=== PATIENT | female | born 1985 | race American Indian/Alaskan Native ===

== ENCOUNTER 2021-10-15 16:03 | Emergency (ER) | payer SELFPAY ==
[2021-10-15 17:46] VITALS: BP 153/76
--- NOTE | 2021-10-15 18:37 | XRay Report ---
LEFT TIBIA-FIBULA 2 VIEW(S) INDICATION / CLINICAL INFORMATION: injury status post fall with left leg pain. COMPARISON: None available. FINDINGS: BONES / JOINT(S): No acute fracture or subluxation. No significant arthritis. SOFT TISSUES: No significant abnormality. ADDITIONAL FINDINGS: None. IMPRESSION: 1. No acute findings. Signer Name: Faye Walden MD Signed: 10/15/2021 6:33 PM Workstation Name: [id number]
--- NOTE | 2021-10-15 19:07 | Emergency Department Report ---
ED Lower Extremity HPI - General Chief Complaint: Extremity Injury, Lower Stated Complaint: LEG INJURY Time Seen by Provider: 10/15/21 18:51 Source: patient Mode of arrival: Ambulatory Limitations: No Limitations - History of Present Illness Initial Comments: 36-year-old -[place] female who was dancing at a concert and twisted left knee. Says the metal been out of place but she put it back in place. Denies having any direct trauma. Reports that have some difficulty walking now. No fever or chills. Complaint: knee injury (L) -: Sudden Injury: Knee: Left Type of Injury: eversion Place: other (Cancer) Improves With: NSAID Context: walking Associated Symptoms: numbness, tingling, able to partially bear weight - Related Data Previous Rx's Medication Instructions Recorded Last Taken Type Naproxen [Naprosyn] 500 mg PO Q12HR PRN #20 10/15/21 Unknown Rx Allergies Allergy/AdvReac Type Severity Reaction Status Date / Time No Known Allergies Allergy Unverified 10/15/21 17:46 ED Review of Systems ROS: Stated complaint: LEG INJURY Other details as noted in HPI Constitutional: no symptoms reported Eyes: as per HPI ENT: as per HPI Respiratory: no symptoms reported Cardiovascular: as per HPI. denies: chest pain Endocrine: denies: excessive sweating, intolerance to cold Gastrointestinal: denies: abdominal pain, nausea Musculoskeletal: as per HPI, joint swelling Neurological: denies: headache, weakness, numbness, paresthesias Psychiatric: as per HPI ED Past Medical Hx - Past Medical History Previous Medical History?: No - Surgical History Past Surgical History?: No - Medications Home Medications: Home Medications Medication Instructions Recorded Confirmed Last Taken Type Naproxen [Naprosyn] 500 mg PO Q12HR PRN #20 10/15/21 Unknown Rx ED Physical Exam - General Limitations: No Limitations ED Course Vital Signs 10/15/21 17:45 Temperature 98.8 F Pulse Rate 91 H Respiratory 18 Rate Blood Pressure 153/76 [Left] O2 Sat by Pulse 99 Oximetry ED Lower Extremity MDM - Radiology Data No acute findings on x-ray Critical care attestation.: If time is entered above; I have spent that time in minutes in the direct care of this critically ill patient, excluding procedure time. ED Disposition Clinical Impression: Dislocation, knee closed, Strain of knee and leg, left Disposition: 01 HOME / SELF CARE / HOMELESS Is pt being admited?: No Condition: Stable Instructions: Knee Dislocation, Muscle Strain Prescriptions: Naproxen [Naprosyn] 500 mg PO Q12HR PRN #20 PRN Reason: Pain , Severe (7-10) Referrals: SUZI COLVIN MD [Staff Physician] - 3-5 Days
== END 2021-10-15 19:48 | disposition home or self-care (01) ==
LOC: ED 16:03
DX: S83.92XA Sprain of unspecified site of left knee, initial encounter (principal); S83.105A Unspecified dislocation of left knee, initial encounter; X58.XXXA Exposure to other specified factors, initial encounter; Y93.89 Activity, other specified; Y92.89 Other specified places as the place of occurrence of the external cause; Y99.8 Other external cause status
CPT/HCPCS: 99283